=== PATIENT | female | born 1970 | race Caucasian/White ===

== ENCOUNTER 2020-01-05 18:54 | Emergency (ER) | payer MEDICAID ==
[~2020-01-05] VITALS: Ht 165.1 cm; Wt 79.0 kg
[2020-01-05] MEDS ORDERED: KETOROLAC 30MG/ML VIAL IM ONE (19:45)
== END 2020-01-05 21:13 | disposition home or self-care (01) ==
LOC: ER 18:54
DX: M25.561 Pain in right knee (principal); E11.9 Type 2 diabetes mellitus without complications
CPT/HCPCS: 73562; 96372; 99283; J1885; L1830